=== PATIENT | female | born 1970 | race Caucasian/White ===

== ENCOUNTER 2018-05-02 14:58 | Emergency (ER) | payer OTHER ==
[2018-05-02 15:55] VITALS: BP 130/76
--- NOTE | 2018-05-02 15:55 | EDM.PDOC ---
ED HPI GENERAL MEDICAL PROBLEM - General Chief Complaint: ENT Problem Stated Complaint: EAR ACHE COUGH CONGESTION Time Seen by Provider: 05/02/18 15:49 Source of Information: Reports: Patient History Limitations: Reports: No Limitations - History of Present Illness INITIAL COMMENTS - FREE TEXT/NARRATIVE: History of present illness: []Patient has had 2 weeks of cough, sore throat, congestion, ear pain and body aches. 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 Symptoms have been persistent and worsening not improving. Review of systems: As per history of present illness and below otherwise all systems reviewed and negative. Past medical history: As per history of present illness and as reviewed below otherwise noncontributory. Surgical history: As per history of present illness and as reviewed below otherwise noncontributory. Social history: No reported history of drug or alcohol abuse. Family history: As per history of present illness and as reviewed below otherwise noncontributory. Physical exam: General: Well developed, well nourished in NAD HEENT: Atraumatic, normocephalic, pupils reactive, negative for conjunctival pallor or scleral icterus, mucous membranes moist, throat clear, neck supple, nontender, trachea midline. Lungs: Clear to auscultation, breath sounds equal bilaterally, chest nontender. Heart: S1S2, regular, negative for clicks, rubs, or JVD. Abdomen: NABS, Soft, nondistended, nontender. Negative for masses or hepatosplenomegaly. Negative for costovertebral tenderness. Pelvis: Stable nontender. Genitourinary: Deferred. Rectal: Deferred. Extremities: Atraumatic, negative for cords or calf pain. Neurovascular unremarkable. Neuro: Awake, alert, oriented. Cranial nerves II through XII unremarkable. Cerebellum unremarkable. Motor and sensory unremarkable throughout. Exam nonfocal. Skin:warm and dry Diagnostics: Strep and influenza negative Therapeutics: None ED Course: Unremarkable Impression: Respiratory infection Prescriptions: Amoxicillin Plan: Follow-up with primary care. Definitive disposition and diagnosis as appropriate pending reevaluation and review of above. Chest Pain Score (Numeric/FACES): 3 - Related Data Allergies Allergy/AdvReac Type Severity Reaction Status Date / Time No Known Allergies Allergy Verified 05/02/18 15:55 Home Meds: Home Meds Amoxicillin 875 mg PO BID 10 Days #20 tab 05/02/18 [Rx] FLUoxetine HCl [Prozac] 60 mg PO DAILY 05/02/18 [History] Omeprazole 1 tab DAILY 05/02/18 [History] Rosuvastatin [Crestor] 10 mg PO DAILY 05/02/18 [History] Past Medical History Cardiovascular History: Reports: High Cholesterol, Hypertension Gastrointestinal History: Reports: Other (See Below) Other Gastrointestinal History: ulcers Genitourinary History: Reports: Renal Calculus 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 ED EXAM, ENT - Physical Exam Exam: See Below (See history of present illness) Course - Vital Signs Last Recorded V/S: Last Vital Signs Temp 97.8 F 05/02/18 15:51 Pulse 84 05/02/18 15:51 Resp 18 05/02/18 15:51 BP 130/76 05/02/18 15:51 Pulse Ox 97 05/02/18 15:51 - Orders/Labs/Meds Orders: Active Orders 24 hr Category Date Time Status CULTURE STREP A CONFIRMATION [] Stat Lab 05/02/18 16:05 Results STREP SCRN A RAPID W CULT CONF [] Stat Lab 05/02/18 16:05 Results Departure - Departure Time of Disposition: 17:00 Disposition: Home, Self-Care 01 Condition: Good Clinical Impression: Upper respiratory infection Qualifiers: URI type: unspecified URI Qualified Code(s): J06.9 - Acute upper respiratory infection, unspecified - Discharge Information *PRESCRIPTION DRUG MONITORING PROGRAM REVIEWED*: No *COPY OF PRESCRIPTION DRUG MONITORING REPORT IN PATIENT JEREMY: No Referrals: Dl You MD [Primary Care Provider] - Forms: ED Department Discharge Additional Instructions: The following information is given to patients seen in the emergency department who are being discharged to home. This information is to outline your options for follow-up care. We provide all patients seen in our emergency department with a follow-up referral. The need for follow-up, as well as the timing and circumstances, are variable depending upon the specifics of your emergency department visit. If you don't have a primary care physician on staff, we will provide you with a referral. We always advise you to contact your personal physician following an emergency department visit to inform them of the circumstance of the visit and for follow-up with them and/or the need for any referrals to a consulting specialist. The emergency department will also refer you to a specialist when appropriate. This referral assures that you have the opportunity for follow-up care with a specialist. All of these measure are taken in an effort to provide you with optimal care, which includes your follow-up. Under all circumstances we always encourage you to contact your private physician who remains a resource for coordinating your care. When calling for follow-up care, please make the office aware that this follow-up is from your recent emergency room visit. If for any reason you are refused follow-up, please contact the [facility] Emergency Department at and asked to speak to the emergency department charge nurse. Amoxicillin as directed return symptoms worsen otherwise follow-up with your primary care. [facility] [address] [place] [id number] - My Orders Last 24 Hours: My Active Orders 05/02/18 16:05 CULTURE STREP A CONFIRMATION [RM] Stat STREP SCRN A RAPID W CULT CONF [RM] Stat - Assessment/Plan Last 24 Hours: My Active Orders 05/02/18 16:05 CULTURE STREP A CONFIRMATION [RM] Stat STREP SCRN A RAPID W CULT CONF [RM] Stat
== END 2018-05-02 17:16 | disposition home or self-care (01) ==
LOC: MW.ED 14:58
DX: J06.9 Acute upper respiratory infection, unspecified (principal); E78.00 Pure hypercholesterolemia, unspecified; F17.210 Nicotine dependence, cigarettes, uncomplicated; I10 Essential (primary) hypertension; F41.9 Anxiety disorder, unspecified; F32.9 Major depressive disorder, single episode, unspecified; Z79.899 Other long term (current) drug therapy
CPT/HCPCS: 87081; 87804; 87880-QW; 99283

== ENCOUNTER 2018-12-27 23:53 | Observation (INO) | payer OTHER ==
[2018-12-28] MEDS ORDERED: Sodium Chloride 0.9% 1,000 ML IV ONE (00:28)
[2018-12-28] MEDS ORDERED: Sodium Chloride 0.9% 10 ML Syringe FLUSH PRN (00:28)
[2018-12-28] MEDS ORDERED: Sodium Chloride 0.9% 2.5 ML Syringe FLUSH PRN (00:28)
--- NOTE | 2018-12-28 00:33 | EDM.PDOC ---
ED HPI GENERAL MEDICAL PROBLEM - General Chief Complaint: General Stated Complaint: FEVER Time Seen by Provider: 12/28/18 00:09 - History of Present Illness INITIAL COMMENTS - FREE TEXT/NARRATIVE: HISTORY AND PHYSICAL: History of present illness: The patient is a 48-year-old female who presents after undergoing rotator cuff surgery and bony spur removal from her left shoulder yesterday morning, presently 36 hours ago, at [facility] with Dr. Chacon and presents with a temperature of 100.5 evening at 11 PM, approximately one and a half hours ago. The patient has been taking her pain medication regularly with her last doses around 9 PM has been adding Motrin with her last dose at 4 PM. She said that she noticed that she felt hot and took her temperature and called her provider and was told that she needed to be evaluated for the fever. The patient says that she has had some shortness of breath which started gradually and seems to be worsening since after the fever and a slight dry cough and with some of the coughing she has had some mucus which is pink tinged no vomiting. She says that she does have a history of an ulcer but is not vomiting or having any epigastric or abdominal pain. She has only had one bottle of water and one bottle of Gatorade all day and says she is not good at drinking water. She does not have a sore throat runny nose or any urinary symptoms. She has no pain at her right hand where her IV was placed yesterday. Due to her significant other who is at bedside he has been keeping an eye on her dressings which he changed today and there is been no drainage or concerns regarding those. Review of systems: As per history of present illness and below otherwise all systems reviewed and negative. Past medical history: As per history of present illness and as reviewed below otherwise noncontributory. Surgical history: As per history of present illness and as reviewed below otherwise noncontributory. Social history: No reported history of drug or alcohol abuse. Family history: As per history of present illness and as reviewed below otherwise noncontributory. Physical exam: General: Well-developed well-nourished mildly overweight female who is nontoxic and vital signs are noted by me. She is currently afebrile in the ED HEENT: Atraumatic, normocephalic, pupils reactive, negative for conjunctival pallor or scleral icterus, mucous membranes tacky throat clear, neck supple, nontender, trachea midline. Lungs: Clear to auscultation with diminished breath sounds in the bases bilaterally but no wheezing stridor or work of breathing,, breath sounds equal bilaterally, chest nontender. Heart: S1S2, regular rhythm slightly tachycardic rate on my evaluation no overt murmurs Abdomen: Soft, nondistended, nontender. Negative for masses or hepatosplenomegaly. Negative for costovertebral tenderness. Pelvis: Stable nontender. Genitourinary: Deferred. Rectal: Deferred. Extremities: Atraumatic, negative for cords or calf pain. Neurovascular unremarkable. At the dorsal aspect of her right hand where the IV was placed yesterday there is no ecchymosis erythema or soft tissue swelling. The dressing that the placed at the left shoulder was taken down and the incisions are clean and dry without any drainage and there is some ill-defined erythema noted and some warmth there but no gross tenderness fluctuance or crepitance. Neuro: Awake, alert, oriented. Cranial nerves II through XII unremarkable. Cerebellum unremarkable. Motor and sensory unremarkable throughout. Exam nonfocal. Diagnostics: Chest x-ray CBC CMP lactate UA with reflex blood cultures 2, EKG BNP Therapeutics: IV, IV fluids, Dilaudid for pain, Zofran Rocephin incentive spirometer She remains afebrile and heart rate has normalized with IV fluids 0225: This was discussed with the orthopedic surgeon at [facility] in [place] , Dr Hastings; he feels this is not an orthopedic issue and that if the patient could be admitted here for care of the pneumonia and fever and observed that would be more convenient for the patient. He is aware that I will discuss this with my hospitalist and if the situation changes she would need to be transferred as this is a postoperative complication. He states understanding and is Appropriate and understandable 0234: Case was discussed with our hospitalist Dr. Silva who excepts the patient for observation with the caveat that if things worsen change or evolve that she would be transferred. I discussed all testing results with the patient and family at bedside and they are aware that we can observe her here and that if the situation changes or develops she would need to be transferred. They state understanding Impression: Postop fever, status post left shoulder surgery; bilateral upper pneumonia Definitive disposition and diagnosis as appropriate pending reevaluation and review of above. 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 - Related Data Allergies Allergy/AdvReac Type Severity Reaction Status Date / Time No Known Allergies Allergy Verified 05/02/18 15:55 Home Meds: Home Meds FLUoxetine HCl [Prozac] 60 mg PO DAILY 05/02/18 [History] Omeprazole 20 mg PO DAILY 05/02/18 [History] Rosuvastatin [Crestor] 10 mg PO DAILY 05/02/18 [History] Gabapentin [Neurontin] 0 mg PO DAILY 12/28/18 [History] Hydrocodone/Acetaminophen [[place] 10-325 Tablet] 0 mg PO ASDIRECTED PRN 12/28/18 [History] cloNIDine [Catapres] 0.1 mg PO DAILY 12/28/18 [History] oxyCODONE 0 mg PO ASDIRECTED PRN 12/28/18 [History] Past Medical History Cardiovascular History: Reports: High Cholesterol, Hypertension Gastrointestinal History: Reports: Other (See Below) Other Gastrointestinal History: ulcers Genitourinary History: Reports: Renal Calculus 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: Musculoskeletal History: Reports: Fibromyalgia Psychiatric History: Reports: Anxiety, Depression Endocrine/Metabolic History: Reports: Obesity/BMI 30+ - Infectious Disease History Infectious Disease History: Reports: Chicken Pox - Past Surgical History Female Surgical History: Reports: Hysterectomy Musculoskeletal Surgical History: Reports: Shoulder Surgery Social & Family History - Family History Family Medical History: Noncontributory Cardiac: Reports: High Cholesterol, Hypertension, [place] Neurological: Reports: CVA Endocrine/Metabolic: Reports: Diabetes, type II - Tobacco Use Smoking Status *Q: Current Every Day Smoker Years of Tobacco use: 30 Packs/Tins Daily: 1 - Recreational Drug Use Recreational Drug Use: No ED ROS GENERAL - Review of Systems Review Of Systems: ROS reveals no pertinent complaints other than HPI. ED EXAM, GENERAL - Physical Exam Exam: See Below (See dictation) Course - Vital Signs Last Recorded V/S: Last Vital Signs Temp 37.8 C 12/28/18 02:11 Pulse 99 12/28/18 02:32 Resp 16 12/28/18 02:32 BP 106/57 L 12/28/18 02:32 Pulse Ox 96 12/28/18 02:32 - Orders/Labs/Meds Orders: Active Orders 24 hr Category Date Time Status Patient Status [ADT] Stat ADT 12/28/18 02:40 Ordered EKG Documentation Completion [RC] STAT Care 12/28/18 01:00 Active Oxygen Therapy, ED [] ASDIRECTED Care 12/28/18 01:06 Active Pulse Oximetry [RC] ASDIRECTED Care 12/28/18 01:06 Active CULTURE BLOOD [BC] Stat Lab 12/28/18 00:39 Received CULTURE BLOOD [BC] Stat Lab 12/28/18 01:30 Received Sodium Chloride 0.9% [Normal Saline] 1,000 ml Med 12/28/18 02:30 Active IV ASDIRECTED Sodium Chloride 0.9% [Saline Flush] Med 12/28/18 00:28 Active 10 ml FLUSH ASDIRECTED PRN Sodium Chloride 0.9% [Saline Flush] Med 12/28/18 00:28 Active 2.5 ml FLUSH ASDIRECTED PRN cefTRIAXone [Rocephin in Dextrose,Iso-Osm 2 GM/50 ML] 2 Med 12/28/18 02:19 Active gm Premix Bag 1 bag IV ONETIME Blood Culture x2 Reflex Set [OM.PC] Stat Oth 12/28/18 00:28 Ordered Saline Lock Insert [OM.PC] Stat Oth 12/28/18 00:27 Ordered Medication Orders Ceftriaxone Sodium/Dextrose 2 (gm/ Premix) 50 mls @ 100 mls/hr IV ONETIME ONE Stop: 12/28/18 02:48 Last Admin: 12/28/18 02:27 Dose: 100 mls/hr Sodium Chloride (Normal Saline) 1,000 mls @ 125 mls/hr IV ASDIRECTED [facility] Last Admin: 12/28/18 02:27 Dose: 125 mls/hr Sodium Chloride (Saline Flush) 10 ml FLUSH ASDIRECTED PRN PRN Reason: Keep Vein Open Sodium Chloride (Saline Flush) 2.5 ml FLUSH ASDIRECTED PRN PRN Reason: Keep Vein Open Labs: Laboratory Tests 12/28/18 12/28/18 12/28/18 Range/Units 00:34 00:39 00:39 WBC 17.15 H (4.0-11.0) K/uL RBC 4.43 (4.30-5.90) M/uL Hgb 13.4 (12.0-16.0) g/dL Hct 40.5 (36.0-46.0) % MCV 91.4 (80.0-98.0) fL MCH 30.2 (27.0-32.0) pg MCHC 33.1 (31.0-37.0) g/dL RDW Std Deviation 43.3 (28.0-62.0) fl RDW Coeff of [place]ry 13 (11.0-15.0) % Plt Count 275 (150-400) K/uL MPV 9.80 (7.40-12.00) fL Neut % (Auto) 77.5 (48.0-80.0) % Lymph % (Auto) 13.3 L (16.0-40.0) % [place] % (Auto) 7.4 (0.0-15.0) % Eos % (Auto) 1.6 (0.0-7.0) % Baso % (Auto) 0.2 (0.0-1.5) % Neut # (Auto) 13.3 H (1.4-5.7) K/uL Lymph # (Auto) 2.3 (0.6-2.4) K/uL [place] # (Auto) 1.3 H (0.0-0.8) K/uL Eos # (Auto) 0.3 (0.0-0.7) K/uL Baso # (Auto) 0.0 (0.0-0.1) K/uL Lactate 1.4 (0.20-2.00) mmol/L Sodium (136-145) mmol/L Potassium (3.5-5.1) mmol/L Chloride (98-107) mmol/L Carbon Dioxide (21.0-32.0) mmol/L BUN (7.0-18.0) mg/dL Creatinine (0.6-1.0) mg/dL Est Cr Clr Drug Dosing mL/min Estimated GFR (MDRD) ml/min Glucose (74-106) mg/dL Calcium (8.5-10.1) mg/dL Total Bilirubin (0.2-1.0) mg/dL AST (15-37) IU/L ALT (14-63) IU/L Alkaline Phosphatase (46-116) U/L B-Natriuretic Peptide (<100) PG/ML Total Protein (6.4-8.2) g/dL Albumin (3.4-5.0) g/dL Globulin (2.6-4.0) g/dL Albumin/Globulin Ratio (0.9-1.6) Urine Color YELLOW Urine Appearance CLEAR Urine pH 6.0 (5.0-8.0) Ur Specific [place] >= 1.030 (1.001-1.035) Urine Protein NEGATIVE (NEGATIVE) mg/dL Urine Glucose (UA) 250 H (NEGATIVE) mg/dL Urine Ketones NEGATIVE (NEGATIVE) mg/dL Urine Occult Blood SMALL H (NEGATIVE) Urine Nitrite NEGATIVE (NEGATIVE) Urine Bilirubin NEGATIVE (NEGATIVE) Urine Urobilinogen 0.2 (<2.0) EU/dL Ur Leukocyte Esterase NEGATIVE (NEGATIVE) Urine RBC 1-3 (0-2/HPF) Urine WBC 0-1 (0-5/HPF) Ur Epithelial Cells MODERATE (NONE-FEW) Urine Bacteria RARE (NEGATIVE) Urine Mucus LIGHT (NONE-MOD) 12/28/18 12/28/18 Range/Units 00:39 00:39 WBC (4.0-11.0) K/uL RBC (4.30-5.90) M/uL Hgb (12.0-16.0) g/dL Hct (36.0-46.0) % MCV (80.0-98.0) fL MCH (27.0-32.0) pg MCHC (31.0-37.0) g/dL RDW Std Deviation (28.0-62.0) fl RDW Coeff of [place] (11.0-15.0) % Plt Count (150-400) K/uL MPV (7.40-12.00) fL Neut % (Auto) (48.0-80.0) % Lymph % (Auto) (16.0-40.0) % [place] % (Auto) (0.0-15.0) % Eos % (Auto) (0.0-7.0) % Baso % (Auto) (0.0-1.5) % Neut # (Auto) (1.4-5.7) K/uL Lymph # (Auto) (0.6-2.4) K/uL [place] # (Auto) (0.0-0.8) K/uL Eos # (Auto) (0.0-0.7) K/uL Baso # (Auto) (0.0-0.1) K/uL Lactate (0.20-2.00) mmol/L Sodium 142 (136-145) mmol/L Potassium 3.5 (3.5-5.1) mmol/L Chloride 106 (98-107) mmol/L Carbon Dioxide 25.6 (21.0-32.0) mmol/L BUN 12 (7.0-18.0) mg/dL Creatinine 0.8 (0.6-1.0) mg/dL Est Cr Clr Drug Dosing 62.44 mL/min Estimated GFR (MDRD) > 60.0 ml/min Glucose 156 H (74-106) mg/dL Calcium 8.6 (8.5-10.1) mg/dL Total Bilirubin 0.5 (0.2-1.0) mg/dL AST 23 (15-37) IU/L ALT 29 (14-63) IU/L Alkaline Phosphatase 105 (46-116) U/L B-Natriuretic Peptide 88 (<100) PG/ML Total Protein 7.3 (6.4-8.2) g/dL Albumin 3.5 (3.4-5.0) g/dL Globulin 3.8 (2.6-4.0) g/dL Albumin/Globulin Ratio 0.9 (0.9-1.6) Urine Color Urine Appearance Urine pH (5.0-8.0) Ur Specific [place] (1.001-1.035) Urine Protein (NEGATIVE) mg/dL Urine Glucose (UA) (NEGATIVE) mg/dL Urine Ketones (NEGATIVE) mg/dL Urine Occult Blood (NEGATIVE) Urine Nitrite (NEGATIVE) Urine Bilirubin (NEGATIVE) Urine Urobilinogen (<2.0) EU/dL Ur Leukocyte Esterase (NEGATIVE) Urine RBC (0-2/HPF) Urine WBC (0-5/HPF) Ur Epithelial Cells (NONE-FEW) Urine Bacteria (NEGATIVE) Urine Mucus (NONE-MOD) Meds: Medications Generic Name Dose Route Start Last Admin Trade Name Freq PRN Reason Stop Dose Admin Ceftriaxone Sodium/Dextrose 2 50 mls @ 100 mls/hr 12/28/18 02:19 12/28/18 02: 27 gm/ Premix IV 12/28/18 02:48 100 mls/hr ONETIME ONE Administration Sodium Chloride 1,000 mls @ 125 mls/hr 12/28/18 02:30 12/28/18 02:27 Normal Saline IV 125 mls/hr ASDIRECTED MARLON Administration Sodium Chloride 10 ml 12/28/18 00:28 Saline Flush FLUSH ASDIRECTED PRN Keep Vein Open Sodium Chloride 2.5 ml 12/28/18 00:28 Saline Flush FLUSH ASDIRECTED PRN Keep Vein Open Discontinued Medications Generic Name Dose Route Start Last Admin Trade Name Freq PRN Reason Stop Dose Admin Hydromorphone HCl 1 mg 12/28/18 00:52 12/28/18 01:02 Dilaudid IVPUSH 12/28/18 00:53 1 mg ONETIME ONE Administration Sodium Chloride 1,000 mls @ 999 mls/hr 12/28/18 00:28 12/28/18 00:49 Normal Saline IV 12/28/18 01:28 999 mls/hr STAT ONE Administration Ondansetron HCl 4 mg 12/28/18 01:06 12/28/18 01:08 Zofran IVPUSH 12/28/18 01:07 4 mg ONETIME ONE Administration Ondansetron HCl Confirm 12/28/18 01:06 12/28/18 01:08 Zofran Administered 12/28/18 01:07 Not Given Dose 4 mg .ROUTE .STK-MED ONE Departure - Departure Time of Disposition: 02:44 Disposition: Refer to Observation Condition: Fair Clinical Impression: Postoperative fever Pneumonia Qualifiers: Pneumonia type: due to unspecified organism Laterality: bilateral Lung location : upper lobe of lung Qualified Code(s): J18.1 - Lobar pneumonia, unspecified organism - Discharge Information Referrals: PCP,None [Primary Care Provider] - Forms: ED Department Discharge - My Orders Last 24 Hours: My Active Orders 12/28/18 00:27 Saline Lock Insert [OM.PC] Stat 12/28/18 00:28 Sodium Chloride 0.9% [Saline Flush] 10 ml FLUSH ASDIRECTED PRN Sodium Chloride 0.9% [Saline Flush] 2.5 ml FLUSH ASDIRECTED PRN Blood Culture x2 Reflex Set [OM.PC] Stat 12/28/18 00:39 CULTURE BLOOD [BC] Stat 12/28/18 01:00 EKG Documentation Completion [RC] STAT 12/28/18 01:06 Oxygen Therapy, ED [RC] ASDIRECTED Pulse Oximetry [RC] ASDIRECTED 12/28/18 01:30 CULTURE BLOOD [BC] Stat 12/28/18 02:19 cefTRIAXone [Rocephin in Dextrose,Iso-Osm 2 GM/50 ML] 2 gm Premix Bag 1 bag IV ONETIME 12/28/18 02:30 Sodium Chloride 0.9% [Normal Saline] 1,000 ml IV ASDIRECTED 12/28/18 02:40 Patient Status [ADT] Stat - Assessment/Plan Last 24 Hours: My Active Orders 12/28/18 00:27 Saline Lock Insert [OM.PC] Stat 12/28/18 00:28 Sodium Chloride 0.9% [Saline Flush] 10 ml FLUSH ASDIRECTED PRN Sodium Chloride 0.9% [Saline Flush] 2.5 ml FLUSH ASDIRECTED PRN Blood Culture x2 Reflex Set [OM.PC] Stat 12/28/18 00:39 CULTURE BLOOD [BC] Stat 12/28/18 01:00 EKG Documentation Completion [RC] STAT 12/28/18 01:06 Oxygen Therapy, ED [RC] ASDIRECTED Pulse Oximetry [RC] ASDIRECTED 12/28/18 01:30 CULTURE BLOOD [BC] Stat 12/28/18 02:19 cefTRIAXone [Rocephin in Dextrose,Iso-Osm 2 GM/50 ML] 2 gm Premix Bag 1 bag IV ONETIME 12/28/18 02:30 Sodium Chloride 0.9% [Normal Saline] 1,000 ml IV ASDIRECTED 12/28/18 02:40 Patient Status [ADT] Stat
[2018-12-28] MEDS ORDERED: HYDROmorphone 1 MG/ML Syringe IVPUSH ONE (00:52)
[2018-12-28] MEDS ORDERED: Ondansetron 4 MG/2 ML SDV ONE (01:06)
[2018-12-28] MEDS ORDERED: Ondansetron 4 MG/2 ML SDV IVPUSH ONE (01:06)
[2018-12-28 01:09] LABS: BLOOD UREA NITROGEN,BUN 12 mg/dL (7.0-18.0); CARBON DIOXIDE,CO2 25.6 mmol/L (21.0-32.0); CHLORIDE,CL 106 mmol/L (98-107); GLUCOSE RANDOM 156 mg/dL (74-106); POTASSIUM,K 3.5 mmol/L (3.5-5.1); SODIUM,NA 142 mmol/L (136-145)
--- NOTE | 2018-12-28 01:28 | CR ---
INDICATION: Pain. Fever. Shortness of breath. Left shoulder surgery 1 day ago. TECHNIQUE: AP portable chest. FINDINGS: Patchy infiltrates within the left upper lobe. More nodular infiltrate in the right upper. These could be infectious in nature. Asymmetric edema not is not entirely excluded. Overall heart size is at the upper limit of normal. IMPRESSION: Patchy infiltrates bilaterally left greater than right. Clinical correlation and radiographic follow up recommended. Dictated by Jose Wiley MD @ Dec 28 2018 1:26AM Signed by Dr. Jose Wiley @ Dec 28 2018 1:27AM
[2018-12-28] MEDS ORDERED: cefTRIAXone 2 GM in Premix Bag 1 BAG IV ONE (02:19)
[2018-12-28] MEDS: Sodium Chloride 0.9% 1,000 ML IV SCH ×2 (02:27→09:07)
[2018-12-28] MEDS ORDERED: Sodium Chloride 0.9% 1,000 ML IV SCH (03:30)
[2018-12-28] MEDS: oxyCODONE 5 MG Tab PO PRN ×4 (05:30→20:42)
--- NOTE | 2018-12-28 07:46 | PCM.HP.2 ---
H&P History of Present Illness - General Date of Service: 12/28/18 Admit Problem/Dx: Admission Diagnosis/Problem Admission Diagnosis/Problem Pneumonia Source of Information: Patient History Limitations: Reports: No Limitations - History of Present Illness Initial Comments - Free Text/Narative: The patient is a 48-year-old lady who presented to the emergency department on December 28, 2018 with a complaint of a fever. The patient said while at home she had a fever of 100.5F. The patient also had recent rotator cuff surgery and bone spur removal from her left shoulder. Patient was discharged from hospitalization yesterday. The patient had been complaining of pain and fever and she contacted her surgeon and they had recommended that she be evaluated in the emergency department. The patient also reportedly had been coughing up pinkish sputum. She also had been complaining of shortness of breath and not being able to take a deep breath. She has no other complaints at the present time. The patient also had said that she does not drink very much fluid. No sore throat. The patient also had denied any nausea or vomiting. Onset of Symptoms: Reports: Sudden Duration of Symptoms: Reports: Day(s): Quality: Reports: Ache, Stabbing, Other Improves with: Reports: Medication Worsens with: Reports: Movement Context: Reports: Other (Postop day #3 surgery left shoulder) left shoulder Pain Score (Numeric/FACES): 8 - Related Data Allergies/Adverse Reactions: Allergies Allergy/AdvReac Type Severity Reaction Status Date / Time No Known Allergies Allergy Verified 12/28/18 02:54 Home Medications: Home Meds FLUoxetine HCl [Prozac] 60 mg PO DAILY 05/02/18 [History] Omeprazole 20 mg PO DAILY 05/02/18 [History] Rosuvastatin [Crestor] 10 mg PO DAILY 05/02/18 [History] Albuterol Sulfate [Proventil Hfa] 6.7 gm IH Q4HR PRN 12/28/18 [History] Amylase/Protease/Papain/Papaya [Papaya Enzyme Chewable Tablet] 1 each PO PRN 09/10 [History] Docusate Sodium [Stool Softener] 100 mg PO DAILY 12/28/18 [History] Gabapentin [Neurontin] 300 mg PO BEDTIME 12/28/18 [History] Jasmin Root [Jasmin] 250 mg PO DAILY 12/28/18 [History] Hydrocodone/Acetaminophen [[place] 10-325 Tablet] 0 mg PO ASDIRECTED PRN 12/28/18 [History] Niacin 100 mg PO DAILY 12/28/18 [History] Vitamin B Complex 1 each PO DAILY 12/28/18 [History] cloNIDine [Catapres] 0.1 mg PO BEDTIME 12/28/18 [History] oxyCODONE 0 mg PO ASDIRECTED PRN 12/28/18 [History] Past Medical History HEENT History: Reports: Hard of Hearing Cardiovascular History: Reports: High Cholesterol, Hypertension, Other (See Below) Other Cardiovascular History: Has some blockage. Not enough for stents. 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: Musculoskeletal History: Reports: Fibromyalgia Neurological History: Reports: None Psychiatric History: Reports: Anxiety, Depression Endocrine/Metabolic History: Reports: Obesity/BMI 30+ Hematologic History: Reports: None - Infectious Disease History Infectious Disease History: Reports: Chicken Pox - Past Surgical History Female Surgical History: Reports: Hysterectomy Musculoskeletal Surgical History: Reports: Shoulder Surgery Social & Family History - Family History Family Medical History: Noncontributory Cardiac: Reports: High Cholesterol, Hypertension, NM Neurological: Reports: CVA Endocrine/Metabolic: Reports: Diabetes, type II - Tobacco Use Smoking Status *Q: Current Every Day Smoker Years of Tobacco use: 33 Packs/Tins Daily: 1 - Caffeine Use Caffeine Use: Reports: Coffee, Soda - Recreational Drug Use Recreational Drug Use: No - Living Situation & Occupation Living situation: Reports: , with Spouse Occupation: Unemployed H&P Review of Systems - Review of Systems: Review Of Systems: See Below General: Reports: Fever, Weakness HEENT: Reports: No Symptoms Pulmonary: Reports: Shortness of Breath, Cough, Sputum Cardiovascular: Reports: No Symptoms Gastrointestinal: Reports: No Symptoms Genitourinary: Reports: No Symptoms Musculoskeletal: Reports: Shoulder Pain (Postoperative day 3) Skin: Reports: No Symptoms Psychiatric: Reports: No Symptoms Neurological: Reports: No Symptoms Hematologic/Lymphatic: Reports: No Symptoms Immunologic: Reports: No Symptoms Exam - Exam Exam: See Below - Vital Signs Vital Signs: Last Vital Signs Temp 36.8 C 12/28/18 03:00 Pulse 96 12/28/18 03:00 Resp 17 12/28/18 03:00 BP 104/62 12/28/18 03:00 Pulse Ox 91 L 12/28/18 03:00 Weight: 82.372 kg - Exam Quality Assessment: No: Supplemental Oxygen General: Alert, Oriented, Cooperative, Mild Distress HEENT: Conjunctiva Clear, EACs Clear, EOMI, Pupils Equal, PERRLA. No: Mucosa Moist & [place] (Dry) Neck: Supple, Trachea Midline Lungs: Clear to Auscultation, Normal Respiratory Effort Cardiovascular: Regular Rate, Regular Rhythm GI/Abdominal Exam: Normal Bowel Sounds, Soft, No Distention. No: Guarding, Rigid, Rebound Extremities: No: Normal Inspection, Normal Range of Motion (Decreased range of motion left shoulder, in sling and swath) Skin: Warm, Dry, Incision (Clean and dry) Neurological: Cranial Nerves Intact Neuro Extensive - Mental Status: Alert, Oriented x3 Psychiatric: Alert, Normal Affect, Normal Mood - Patient Data Lab Results Last 24 hrs: Laboratory Results - last 24 hr 12/28/18 12/28/18 12/28/18 Range/Units 00:34 00:39 00:39 WBC 17.15 H (4.0-11.0) K/uL RBC 4.43 (4.30-5.90) M/uL Hgb 13.4 (12.0-16.0) g/dL Hct 40.5 (36.0-46.0) % MCV 91.4 (80.0-98.0) fL MCH 30.2 (27.0-32.0) pg MCHC 33.1 (31.0-37.0) g/dL RDW Std Deviation 43.3 (28.0-62.0) fl RDW Coeff of Adry 13 (11.0-15.0) % Plt Count 275 (150-400) K/uL MPV 9.80 (7.40-12.00) fL Neut % (Auto) 77.5 (48.0-80.0) % Lymph % (Auto) 13.3 L (16.0-40.0) % [place] % (Auto) 7.4 (0.0-15.0) % Eos % (Auto) 1.6 (0.0-7.0) % Baso % (Auto) 0.2 (0.0-1.5) % Neut # (Auto) 13.3 H (1.4-5.7) K/uL Lymph # (Auto) 2.3 (0.6-2.4) K/uL [place] # (Auto) 1.3 H (0.0-0.8) K/uL Eos # (Auto) 0.3 (0.0-0.7) K/uL Baso # (Auto) 0.0 (0.0-0.1) K/uL Lactate 1.4 (0.20-2.00) mmol/L Sodium (136-145) mmol/L Potassium (3.5-5.1) mmol/L Chloride (98-107) mmol/L Carbon Dioxide (21.0-32.0) mmol/L BUN (7.0-18.0) mg/dL Creatinine (0.6-1.0) mg/dL Est Cr Clr Drug Dosing mL/min Estimated GFR (MDRD) ml/min Glucose (74-106) mg/dL Calcium (8.5-10.1) mg/dL Total Bilirubin (0.2-1.0) mg/dL AST (15-37) IU/L ALT (14-63) IU/L Alkaline Phosphatase (46-116) U/L B-Natriuretic Peptide (<100) PG/ML Total Protein (6.4-8.2) g/dL Albumin (3.4-5.0) g/dL Globulin (2.6-4.0) g/dL Albumin/Globulin Ratio (0.9-1.6) Urine Color YELLOW Urine Appearance CLEAR Urine pH 6.0 (5.0-8.0) Ur Specific [place] >= 1.030 (1.001-1.035) Urine Protein NEGATIVE (NEGATIVE) mg/dL Urine Glucose (UA) 250 H (NEGATIVE) mg/dL Urine Ketones NEGATIVE (NEGATIVE) mg/dL Urine Occult Blood SMALL H (NEGATIVE) Urine Nitrite NEGATIVE (NEGATIVE) Urine Bilirubin NEGATIVE (NEGATIVE) Urine Urobilinogen 0.2 (<2.0) EU/dL Ur Leukocyte Esterase NEGATIVE (NEGATIVE) Urine RBC 1-3 (0-2/HPF) Urine WBC 0-1 (0-5/HPF) Ur Epithelial Cells MODERATE (NONE-FEW) Urine Bacteria RARE (NEGATIVE) Urine Mucus LIGHT (NONE-MOD) 12/28/18 12/28/18 Range/Units 00:39 00:39 WBC (4.0-11.0) K/uL RBC (4.30-5.90) M/uL Hgb (12.0-16.0) g/dL Hct (36.0-46.0) % MCV (80.0-98.0) fL MCH (27.0-32.0) pg MCHC (31.0-37.0) g/dL RDW Std Deviation (28.0-62.0) fl RDW Coeff of [place] (11.0-15.0) % Plt Count (150-400) K/uL MPV (7.40-12.00) fL Neut % (Auto) (48.0-80.0) % Lymph % (Auto) (16.0-40.0) % [place] % (Auto) (0.0-15.0) % Eos % (Auto) (0.0-7.0) % Baso % (Auto) (0.0-1.5) % Neut # (Auto) (1.4-5.7) K/uL Lymph # (Auto) (0.6-2.4) K/uL [place] # (Auto) (0.0-0.8) K/uL Eos # (Auto) (0.0-0.7) K/uL Baso # (Auto) (0.0-0.1) K/uL Lactate (0.20-2.00) mmol/L Sodium 142 (136-145) mmol/L Potassium 3.5 (3.5-5.1) mmol/L Chloride 106 (98-107) mmol/L Carbon Dioxide 25.6 (21.0-32.0) mmol/L BUN 12 (7.0-18.0) mg/dL Creatinine 0.8 (0.6-1.0) mg/dL Est Cr Clr Drug Dosing 62.44 mL/min Estimated GFR (MDRD) > 60.0 ml/min Glucose 156 H (74-106) mg/dL Calcium 8.6 (8.5-10.1) mg/dL Total Bilirubin 0.5 (0.2-1.0) mg/dL AST 23 (15-37) IU/L ALT 29 (14-63) IU/L Alkaline Phosphatase 105 (46-116) U/L B-Natriuretic Peptide 88 (<100) PG/ML Total Protein 7.3 (6.4-8.2) g/dL Albumin 3.5 (3.4-5.0) g/dL Globulin 3.8 (2.6-4.0) g/dL Albumin/Globulin Ratio 0.9 (0.9-1.6) Urine Color Urine Appearance Urine pH (5.0-8.0) Ur Specific [place] (1.001-1.035) Urine Protein (NEGATIVE) mg/dL Urine Glucose (UA) (NEGATIVE) mg/dL Urine Ketones (NEGATIVE) mg/dL Urine Occult Blood (NEGATIVE) Urine Nitrite (NEGATIVE) Urine Bilirubin (NEGATIVE) Urine Urobilinogen (<2.0) EU/dL Ur Leukocyte Esterase (NEGATIVE) Urine RBC (0-2/HPF) Urine WBC (0-5/HPF) Ur Epithelial Cells (NONE-FEW) Urine Bacteria (NEGATIVE) Urine Mucus (NONE-MOD) Result Diagrams: 12/28/18 00:39 12/28/18 00:39 - Problem List (1) Acute respiratory failure SNOMED Code(s): 67884596 ICD Code: J96.00 - ACUTE RESPIRATORY FAILURE, UNSP W HYPOXIA OR HYPERCAPNIA Status: Acute Current Visit: Yes (2) Hypoxia SNOMED Code(s): 301603153 ICD Code: R09.02 - HYPOXEMIA Status: Acute Current Visit: Yes (3) Pneumonia SNOMED Code(s): 437844601 ICD Code: J18.9 - PNEUMONIA, UNSPECIFIED ORGANISM Status: Acute Current Visit: Yes Qualifiers: Pneumonia type: due to unspecified organism Laterality: bilateral Lung location: upper lobe of lung Qualified Code(s): J18.1 - Lobar pneumonia, unspecified organism (4) Postoperative fever SNOMED Code(s): 240650628 ICD Code: R50.82 - POSTPROCEDURAL FEVER Status: Acute Current Visit: Yes Problem List Initiated/Reviewed/Updated: Yes Orders Last 24hrs: Active Orders 24 hr Category Date Time Status Patient Status [ADT] Stat ADT 12/28/18 02:40 Active Pulse Oximetry [RC] ASDIRECTED Care 12/28/18 01:06 Active Regular Diet [DIET] Diet 12/28/18 Breakfast Active CULTURE BLOOD [BC] Stat Lab 12/28/18 00:39 Received CULTURE BLOOD [BC] Stat Lab 12/28/18 01:30 Received Sodium Chloride 0.9% [Normal Saline] 1,000 ml Med 12/28/18 02:30 Active IV ASDIRECTED Sodium Chloride 0.9% [Normal Saline] 1,000 ml Med 12/28/18 03:30 Active IV ASDIRECTED Sodium Chloride 0.9% [Saline Flush] Med 12/28/18 00:28 Active 10 ml FLUSH ASDIRECTED PRN Sodium Chloride 0.9% [Saline Flush] Med 12/28/18 00:28 Active 2.5 ml FLUSH ASDIRECTED PRN oxyCODONE Med 12/28/18 03:27 Active 5 mg PO Q4H PRN Blood Culture x2 Reflex Set [OM.PC] Stat Oth 12/28/18 00:28 Ordered Saline Lock Insert [OM.PC] Stat Oth 12/28/18 00:27 Ordered Medication Orders Sodium Chloride (Normal Saline) 1,000 mls @ 125 mls/hr IV ASDIRECTED [facility]LON Last Admin: 12/28/18 02:27 Dose: 125 mls/hr Sodium Chloride (Normal Saline) 1,000 mls @ 125 mls/hr IV ASDIRECTED [facility] Oxycodone HCl (Oxycodone) 5 mg PO Q4H PRN PRN Reason: Pain Last Admin: 12/28/18 05:30 Dose: 5 mg Sodium Chloride (Saline Flush) 10 ml FLUSH ASDIRECTED PRN PRN Reason: Keep Vein Open Sodium Chloride (Saline Flush) 2.5 ml FLUSH ASDIRECTED PRN PRN Reason: Keep Vein Open Assessment/Plan Comment:: The patient is an otherwise healthy 48-year-old lady who will be admitted secondary to pneumonia. I've also ordered a CT scan of her chest and help exclude pulmonary emboli. The patient because of her recent hospitalization will be treated as hospital-acquired pneumonia and Rocephin has been discontinued. The emergency room physician is also discussed the case with the orthopedic surgeon of record and is felt that the patient can be managed here. The patient will be started on Zosyn, vancomycin and clindamycin with pharmacy to dose. I've ordered repeat laboratory studies for the morning. She'll be kept on a regular diet as tolerated. I've also ordered that the patient be anticoagulated with the use of Lovenox. PT OT will evaluate the patient. She also has been encouraged to ambulate. I've also instructed the patient in the use of incentive spirometer as she has not been taking a very deep breath and I believe that this is also contributing to her hypoxia. The patient should be appropriate for discharge in 1-2 days. - Mortality Measure Prognosis:: Good
[2018-12-28] MEDS ORDERED: Albuterol/Ipratropium 3.0-0.5 MG/3 ML Neb Soln NEB PRN (08:18)
[2018-12-28] MEDS ORDERED: Ondansetron 4 MG Tab.DIS PO PRN (08:18)
[2018-12-28] MEDS ORDERED: Piperacillin/Tazobactam 4.5 GM in Sodium Chloride 0.9% 100 ML IV SCH ×2 (09:30→11:30)
[2018-12-28] MEDS: Docusate Sodium 100 MG Cap PO SCH (09:59)
[2018-12-28] MEDS: FLUoxetine 20 MG Cap PO SCH (09:59)
[2018-12-28] MEDS: Omeprazole 20 MG Cap.CR PO SCH (09:59)
[2018-12-28] MEDS: Rosuvastatin 10 MG Tab PO SCH (09:59)
[2018-12-28] MEDS: Enoxaparin 40 MG/0.4 ML Syringe SUBCUT SCH (10:01)
[2018-12-28] MEDS ORDERED: Iopamidol 755 MG/ML 200 ML Multipack Bottle IVPUSH STA (10:19)
[2018-12-28] MEDS: VANCOMYCIN/WATER FOR INJ (PEG) 1.5 GM in Premix Bag 1 BAG IV SCH ×2 (10:32→22:17)
[2018-12-28] MEDS: Nicotine 14 MG/24 Hr Patch TRDERM SCH (10:32)
[2018-12-28] MEDS ORDERED: Clindamycin Phosphate in D5W 300 MG in Premix Bag 1 BAG IV SCH ×2 (11:00)
--- NOTE | 2018-12-28 11:01 | CT ---
Indication: Shortness of breath. Technique: Multiple contiguous axial images were obtained from the thoracic inlet to the upper abdomen after the intravenous administration of 50 milliliters Isovue 370. Please note that all CT scans at this facility use dose modulation, iterative reconstruction, and/or weight-based dosing when appropriate to reduce radiation dose to as low as reasonably achievable. Comparison: None Findings: The aorta is normal in caliber. There is no evidence of aortic dissection. No pulmonary embolism is identified. No mediastinal, hilar, or axillary lymphadenopathy is identified. The visualized portions of the unenhanced liver and spleen are grossly normal. Degenerative changes of the spine are identified. No lytic or blastic lesions are identified. Bilateral dense ground-glass opacities are identified within both lungs, greatest in the left upper lobe. Small bilateral pleural effusions are identified, greater on the left than the right. No pneumothorax is identified. Impression: No evidence of pulmonary embolism. Bilateral dense ground-glass opacities, greatest in the left upper lobe. This is nonspecific, but can be seen with an infectious/inflammatory etiologies. Please note that all CT scans at this facility use dose modulation, iterative reconstruction, and/or weight-based dosing when appropriate to reduce radiation dose to as low as reasonably achievable. Dictated by Charlee Mathew MD @ Dec 28 2018 10:53AM Signed by Dr. Charlee Mathew @ Dec 28 2018 11:00AM
[2018-12-28] MEDS: Clindamycin Phosphate in D5W 300 MG in Premix Bag 1 BAG IV SCH ×4 (12:16→17:55)
[2018-12-28] MEDS: Piperacillin/Tazobactam 4.5 GM in Sodium Chloride 0.9% 100 ML IV SCH ×2 (12:56→18:43)
[2018-12-28] MEDS: Acetaminophen 325 MG Tab PO PRN (16:07)
[2018-12-28] MEDS: Gabapentin 300 MG Cap PO SCH (20:41)
[2018-12-28] MEDS: cloNIDine 0.1 MG Tab PO SCH (20:41)
[2018-12-29] MEDS: Clindamycin Phosphate in D5W 300 MG in Premix Bag 1 BAG IV SCH ×10 (00:28→23:37)
[2018-12-29] MEDS: oxyCODONE 5 MG Tab PO PRN ×3 (00:42→17:23)
[2018-12-29] MEDS: Piperacillin/Tazobactam 4.5 GM in Sodium Chloride 0.9% 100 ML IV SCH ×4 (01:14→18:56)
[2018-12-29] MEDS: Acetaminophen 325 MG Tab PO PRN ×4 (02:09→20:06)
[2018-12-29] MEDS: Omeprazole 20 MG Cap.CR PO SCH ×2 (06:25→06:32)
[2018-12-29 06:48] LABS: BLOOD UREA NITROGEN,BUN 9 mg/dL (7.0-18.0); CARBON DIOXIDE,CO2 24.6 mmol/L (21.0-32.0); CHLORIDE,CL 104 mmol/L (98-107); GLUCOSE RANDOM 98 mg/dL (74-106); POTASSIUM,K 3.6 mmol/L (3.5-5.1); SODIUM,NA 139 mmol/L (136-145)
--- NOTE | 2018-12-29 08:13 | CR ---
Indication : [id number]; followup. COMPARISON: CT angio chest with intravenous contrast December 28, 2018; chest radiograph December 28, 2018. TECHNIQUE: Portable AP chest. FINDINGS: Mild stable cardiomegaly. Pulmonary edema. No pneumothorax or pleural effusion . Impression : Pulmonary edema; no interval change when compared to December 28, 2018. Dictated by Chance Garay MD @ Dec 29 2018 8:09AM Signed by Dr. Chance Garay @ Dec 29 2018 8:12AM
--- NOTE | 2018-12-29 08:58 | PCM.PN ---
- General Info Date of Service: 12/29/18 Admission Dx/Problem (Free Text): Admission Diagnosis/Problem Admission Diagnosis/Problem Pneumonia Subjective Update: The patient is a 48-year-old lady who was admitted on December 28, 2018 secondary to fever, chills, shortness of breath and hypoxia. The patient was 3 days postop for rotator cuff repair of her left shoulder. She is not having any problems with her left shoulder. CT scan of her chest had excluded pulmonary emboli.The patient has had some physical improvement overnight. She has denied any pain. Her shortness of breath is better. The patient has not been using oxygen. She has been using her incentive spirometer and has been up to 750 mL. Functional Status: Reports: Pain Controlled - Review of Systems General: Reports: No Symptoms HEENT: Reports: No Symptoms Pulmonary: Reports: Shortness of Breath, Cough Cardiovascular: Reports: No Symptoms Gastrointestinal: Reports: No Symptoms Genitourinary: Reports: No Symptoms Musculoskeletal: Reports: Shoulder Pain (Postoperative day #4) Skin: Reports: No Symptoms Neurological: Reports: No Symptoms Psychiatric: Reports: No Symptoms - Patient Data Vitals - Most Recent: Last Vital Signs Temp 36.5 C 12/29/18 07:27 Pulse 78 12/29/18 07:27 Resp 18 12/29/18 07:27 BP 89/66 L 12/29/18 07:27 Pulse Ox 92 L 12/29/18 07:27 Weight - Most Recent: 82.372 kg I&O - Last 24 Hours: Intake & Output 12/28/18 12/29/18 12/29/18 22:59 06:59 14:59 Intake Total 1436 1290 Output Total 2800 2700 Balance -1364 -1410 Lab Results Last 24 Hours: Laboratory Results - last 24 hr 12/29/18 12/29/18 Range/Units 05:35 05:35 WBC 13.08 H (4.0-11.0) K/uL RBC 4.31 (4.30-5.90) M/uL Hgb 12.7 (12.0-16.0) g/dL Hct 39.1 (36.0-46.0) % MCV 90.7 (80.0-98.0) fL MCH 29.5 (27.0-32.0) pg MCHC 32.5 (31.0-37.0) g/dL RDW Std Deviation 44.0 (28.0-62.0) fl RDW Coeff of Adry 13 (11.0-15.0) % Plt Count 289 (150-400) K/uL MPV 10.10 (7.40-12.00) fL Neut % (Auto) 59.1 (48.0-80.0) % Lymph % (Auto) 25.3 (16.0-40.0) % [place] % (Auto) 10.6 (0.0-15.0) % Eos % (Auto) 4.7 (0.0-7.0) % Baso % (Auto) 0.3 (0.0-1.5) % Neut # (Auto) 7.7 H (1.4-5.7) K/uL Lymph # (Auto) 3.3 H (0.6-2.4) K/uL [place] # (Auto) 1.4 H (0.0-0.8) K/uL Eos # (Auto) 0.6 (0.0-0.7) K/uL Baso # (Auto) 0.0 (0.0-0.1) K/uL Nucleated RBC % 0.0 /100WBC Nucleated RBCs # 0 K/uL Sodium 139 (136-145) mmol/L Potassium 3.6 (3.5-5.1) mmol/L Chloride 104 (98-107) mmol/L Carbon Dioxide 24.6 (21.0-32.0) mmol/L BUN 9 (7.0-18.0) mg/dL Creatinine 0.8 (0.6-1.0) mg/dL Est Cr Clr Drug Dosing 62.44 mL/min Estimated GFR (MDRD) > 60.0 ml/min Glucose 98 (74-106) mg/dL Calcium 8.6 (8.5-10.1) mg/dL Total Bilirubin 1.2 H (0.2-1.0) mg/dL AST 33 (15-37) IU/L ALT 38 (14-63) IU/L Alkaline Phosphatase 100 (46-116) U/L Total Protein 6.7 (6.4-8.2) g/dL Albumin 2.9 L (3.4-5.0) g/dL Globulin 3.8 (2.6-4.0) g/dL Albumin/Globulin Ratio 0.8 L (0.9-1.6) Med Orders - Current: Current Medications Acetaminophen (Tylenol) 650 mg PO Q4H PRN PRN Reason: Pain Last Admin: 12/29/18 05:50 Dose: 650 mg Albuterol/Ipratropium (Duoneb 3.0-0.5 Mg/3 Ml) 3 ml NEB Q4HRRT PRN PRN Reason: Shortness Of Breath/wheezing Clonidine HCl (Catapres) 0.1 mg PO BEDTIME [facility] Last Admin: 12/28/18 20:41 Dose: 0.1 mg Docusate Sodium (Colace) 100 mg PO DAILY [facility] Last Admin: 12/28/18 09:59 Dose: 100 mg Enoxaparin Sodium (Lovenox) 40 mg SUBCUT Q24H [facility] Last Admin: 12/28/18 10:01 Dose: 40 mg Fluoxetine HCl (Prozac) 60 mg PO DAILY [facility] Last Admin: 12/28/18 09:59 Dose: 60 mg Gabapentin (Neurontin) 300 mg PO BEDTIME [facility] Last Admin: 12/28/18 20:41 Dose: 300 mg Vancomycin HCl 1.5 gm/ Premix 300 mls @ 199.188 mls/hr IV Q12H [facility] Last Admin: 12/28/18 22:17 Dose: 199.188 mls/hr Clindamycin Phosphate 300 mg/ (Premix) 50 mls @ 100 mls/hr IV Q6H [facility] Last Admin: 12/29/18 05:42 Dose: 100 mls/hr Piperacillin Sod/Tazobactam (Sod 4.5 gm/ Sodium Chloride) 100 mls @ 100 mls/hr IV Q6H [facility] Last Admin: 12/29/18 06:23 Dose: 100 mls/hr Nicotine (Habitrol) 14 mg TRDERM DAILY [facility] Last Admin: 12/28/18 10:32 Dose: 14 mg Omeprazole (Omeprazole) 20 mg PO ACBREAKFAST [facility] Last Admin: 12/29/18 06:32 Dose: 20 mg Ondansetron HCl (Zofran Odt) 4 mg PO Q6H PRN PRN Reason: nausea, able to take PO Oxycodone HCl (Oxycodone) 5 mg PO Q4H PRN PRN Reason: Pain Last Admin: 12/29/18 00:42 Dose: 5 mg Rosuvastatin Calcium (Crestor) 10 mg PO DAILY [facility] Last Admin: 12/28/18 09:59 Dose: 10 mg Sodium Chloride (Saline Flush) 10 ml FLUSH ASDIRECTED PRN PRN Reason: Keep Vein Open Sodium Chloride (Saline Flush) 2.5 ml FLUSH ASDIRECTED PRN PRN Reason: Keep Vein Open Discontinued Medications Hydromorphone HCl (Dilaudid) 1 mg IVPUSH ONETIME ONE Stop: 12/28/18 00:53 Last Admin: 12/28/18 01:02 Dose: 1 mg Sodium Chloride (Normal Saline) 1,000 mls @ 999 mls/hr IV STAT ONE Stop: 12/28/18 01:28 Last Admin: 12/28/18 00:49 Dose: 999 mls/hr Ceftriaxone Sodium/Dextrose 2 (gm/ Premix) 50 mls @ 100 mls/hr IV ONETIME ONE Stop: 12/28/18 02:48 Last Admin: 12/28/18 02:27 Dose: 100 mls/hr Sodium Chloride (Normal Saline) 1,000 mls @ 125 mls/hr IV ASDIRECTED [facility] Last Admin: 12/28/18 09:07 Dose: 125 mls/hr Sodium Chloride (Normal Saline) 1,000 mls @ 125 mls/hr IV ASDIRECTED [facility] Clindamycin Phosphate 300 mg/ (Premix) 50 mls @ 100 mls/hr IV Q6H [facility] Last Admin: 12/28/18 14:27 Dose: Not Given Piperacillin Sod/Tazobactam (Sod 4.5 gm/ Sodium Chloride) 100 mls @ 100 mls/hr IV Q6H [facility] Last Admin: 12/28/18 14:27 Dose: Not Given Piperacillin Sod/Tazobactam (Sod 4.5 gm/ Sodium Chloride) 100 mls @ 100 mls/hr IV Q6H [facility] Last Admin: 12/28/18 14:27 Dose: Not Given Iopamidol (Isovue Multipack-370 (76%)) 50 ml IVPUSH ONETIME STA Stop: 12/28/18 10:20 Last Admin: 12/28/18 10:20 Dose: 50 ml Ondansetron HCl (Zofran) 4 mg IVPUSH ONETIME ONE Stop: 12/28/18 01:07 Last Admin: 12/28/18 01:08 Dose: 4 mg Ondansetron HCl (Zofran) Confirm Administered Dose 4 mg .ROUTE .STK-MED ONE Stop: 12/28/18 01:07 Last Admin: 12/28/18 01:08 Dose: Not Given - Exam Quality Assessment: No: Supplemental Oxygen General: Alert, Oriented, Cooperative, No Acute Distress HEENT: Pupils Equal, Pupils Reactive, EOMI, Mucous Membr. Moist/[place] Neck: Supple, Trachea Midline Lungs: Decreased Breath Sounds, Rales Cardiovascular: Regular Rate, Regular Rhythm GI/Abdominal Exam: Normal Bowel Sounds, Soft, Non-Tender, No Distention Back Exam: Normal Inspection, Full Range of Motion Extremities: Normal Inspection, Normal Range of Motion, No Pedal Edema Skin: Warm, Dry, Intact Wound/Incisions: Healing Well Neurological: No New Focal Deficit Psy/Mental Status: Alert, Normal Affect, Normal Mood - Problem List & Annotations (1) Acute respiratory failure SNOMED Code(s): 82421421 Code(s): J96.00 - ACUTE RESPIRATORY FAILURE, UNSP W HYPOXIA OR HYPERCAPNIA Status: Resolved Priority: High Current Visit: Yes Qualifiers: Respiratory failure complication: hypoxia Qualified Code(s): J96.01 - Acute respiratory failure with hypoxia (2) Hypoxia SNOMED Code(s): 245425040 Code(s): R09.02 - HYPOXEMIA Status: Acute Current Visit: Yes (3) Pneumonia SNOMED Code(s): 840893263 Code(s): J18.9 - PNEUMONIA, UNSPECIFIED ORGANISM Status: Acute Priority: High Current Visit: Yes Qualifiers: Pneumonia type: due to unspecified organism Laterality: bilateral Lung location: upper lobe of lung Qualified Code(s): J18.1 - Lobar pneumonia, unspecified organism (4) Postoperative fever SNOMED Code(s): 813656743 Code(s): R50.82 - POSTPROCEDURAL FEVER Status: Acute Current Visit: Yes - Problem List Review Problem List Initiated/Reviewed/Updated: Yes - My Orders Last 24 Hours: My Active Orders 12/28/18 08:18 Oxygen Therapy [RC] PRN Up With Assistance [RC] ASDIRECTED VTE/DVT Education [RC] PER UNIT ROUTINE Vital Signs [RC] Q4H Albuterol/Ipratropium [DuoNeb 3.0-0.5 MG/3 ML] 3 ml NEB Q4HRRT PRN Ondansetron [Zofran ODT] 4 mg PO Q6H PRN Resuscitation Status Routine 12/28/18 08:20 RT Aerosol Therapy [RC] ASDIRECTED 12/28/18 09:00 Docusate Sodium [Colace] 100 mg PO DAILY Enoxaparin [Lovenox] 40 mg SUBCUT Q24H FLUoxetine [PROzac] 60 mg PO DAILY Omeprazole 20 mg PO ACBREAKFAST Rosuvastatin [Crestor] 10 mg PO DAILY 12/28/18 09:30 Vancomycin/Water For Inj (Peg) [Vancomycin 1.5 GM/300 ML Bag] 1.5 gm Premix Bag 1 bag IV Q12H 12/28/18 09:45 Nicotine [Habitrol] 14 mg TRDERM DAILY 12/28/18 12:30 Clindamycin Phosphate in D5W [Cleocin in D5W] 300 mg Premix Bag 1 bag IV Q6H 12/28/18 13:00 Piperacillin/Tazobactam [Piperacil-Tazobact] 4.5 gm Sodium Chloride 0.9% [ Normal Saline] 100 ml IV Q6H 12/28/18 15:54 Acetaminophen [Tylenol] 650 mg PO Q4H PRN 12/28/18 17:24 Amylase/Protease/Papain/Papaya [Papaya Enzyme Chewable Tablet] DOSE UNIT RTE FREQ PRN 12/28/18 21:00 Gabapentin [Neurontin] 300 mg PO BEDTIME cloNIDine [Catapres] 0.1 mg PO BEDTIME 12/30/18 09:00 VANCOMYCIN TROUGH [CHEM] Timed - Plan Plan:: The patient is improved. She will be maintained on her current antibiotics for treatment of hospital-acquired pneumonia. Repeat chest x-ray completed this morning shows somewhat improvement over her admission chest x-ray. The patient' s CT obtained late yesterday afternoon does not show any evidence of pulmonary emboli however she does have ground glass opacities that are consistent with infiltrates. The patient will be kept on her regular diet as tolerated. She is also to have PT OT. The patient will have oxygen as necessary to keep her saturations above 92% area the patient should be appropriate for discharge home once her oxygen demands have normalized and she is able to breathe deeply. The patient has been encouraged to ambulate.
[2018-12-29] MEDS: Docusate Sodium 100 MG Cap PO SCH (09:24)
[2018-12-29] MEDS: Rosuvastatin 10 MG Tab PO SCH (09:24)
[2018-12-29] MEDS: Enoxaparin 40 MG/0.4 ML Syringe SUBCUT SCH (09:27)
[2018-12-29] MEDS: FLUoxetine 20 MG Cap PO SCH (09:27)
[2018-12-29] MEDS: Nicotine 14 MG/24 Hr Patch TRDERM SCH (09:28)
[2018-12-29] MEDS: VANCOMYCIN/WATER FOR INJ (PEG) 1.5 GM in Premix Bag 1 BAG IV SCH ×2 (09:34→21:31)
[2018-12-29] MEDS: cloNIDine 0.1 MG Tab PO SCH (21:26)
[2018-12-29] MEDS: Gabapentin 300 MG Cap PO SCH (21:26)
[2018-12-30] MEDS: Piperacillin/Tazobactam 4.5 GM in Sodium Chloride 0.9% 100 ML IV SCH ×2 (00:14→06:53)
[2018-12-30] MEDS: oxyCODONE 5 MG Tab PO PRN ×2 (02:46→09:46)
[2018-12-30] MEDS: Clindamycin Phosphate in D5W 300 MG in Premix Bag 1 BAG IV SCH ×2 (06:14)
[2018-12-30] MEDS: Acetaminophen 325 MG Tab PO PRN (06:25)
[2018-12-30] MEDS: Omeprazole 20 MG Cap.CR PO SCH (06:53)
[2018-12-30 08:32] LABS: BLOOD UREA NITROGEN,BUN 9 mg/dL (7.0-18.0); CARBON DIOXIDE,CO2 22.4 mmol/L (21.0-32.0); CHLORIDE,CL 103 mmol/L (98-107); GLUCOSE RANDOM 149 mg/dL (74-106); POTASSIUM,K 3.1 mmol/L (3.5-5.1); SODIUM,NA 137 mmol/L (136-145)
[2018-12-30] MEDS: Rosuvastatin 10 MG Tab PO SCH (09:09)
[2018-12-30] MEDS: Docusate Sodium 100 MG Cap PO SCH (09:09)
[2018-12-30] MEDS: Nicotine 14 MG/24 Hr Patch TRDERM SCH (09:09)
[2018-12-30] MEDS: FLUoxetine 20 MG Cap PO SCH (09:09)
[2018-12-30] MEDS: Enoxaparin 40 MG/0.4 ML Syringe SUBCUT SCH (09:10)
[2018-12-30] MEDS: VANCOMYCIN/WATER FOR INJ (PEG) 1.5 GM in Premix Bag 1 BAG IV SCH (09:49)
--- NOTE | 2018-12-30 09:58 | PCM.DCSUM1 ---
Discharge Summary - Hospital Course HPI Initial Comments: The patient was admitted secondary to shortness of breath and hypoxia. Diagnosis: Stroke: No - Discharge Data Discharge Date: 12/30/18 Discharge Disposition: Home, Self-Care 01 Condition: Fair - Referral to Home Health Primary Care Physician: PCP None - Discharge Diagnosis/Problem(s) (1) Acute respiratory failure SNOMED Code(s): 25854806 ICD Code: J96.00 - ACUTE RESPIRATORY FAILURE, UNSP W HYPOXIA OR HYPERCAPNIA Status: Resolved Priority: High Current Visit: Yes Qualifiers: Respiratory failure complication: hypoxia Qualified Code(s): J96.01 - Acute respiratory failure with hypoxia (2) Hypoxia SNOMED Code(s): 361757742 ICD Code: R09.02 - HYPOXEMIA Status: Resolved Current Visit: Yes (3) Pneumonia SNOMED Code(s): 788648043 ICD Code: J18.9 - PNEUMONIA, UNSPECIFIED ORGANISM Status: Acute Priority : High Current Visit: Yes Qualifiers: Pneumonia type: due to unspecified organism Laterality: bilateral Lung location: upper lobe of lung Qualified Code(s): J18.1 - Lobar pneumonia, unspecified organism (4) Postoperative fever SNOMED Code(s): 115067097 ICD Code: R50.82 - POSTPROCEDURAL FEVER Status: Acute Current Visit: Yes - Patient Summary/Data Hospital Course: The patient is a 48-year-old lady who was admitted to acute hospitalization on December 28, 2018 secondary to pneumonia. The patient had surgery for rotator cuff repair on her left shoulder 3 days prior to admission. The patient had shortness of breath. She also had low-grade fever of 100.5F. And the patient was told to go to the emergency room if she started to develop any fever or chills. The patient also had been noted to have productive of pinkish sputum along with shortness of breath and not able to take a deep breath. The patient was noted to be hypoxic at 90% while on room air initially. The patient had a chest x-ray obtained on December 29, 2018 which showed mild stable cardiomegaly with pulmonary edema. The patient also had a CT scan obtained on December 28, 2018 out of concern for for possible pulmonary emboli. CT scan did not show evidence of pulmonary emboli. The patient was continued on antibiotics and she was treated specifically for hospital-acquired pneumonia due to her recent surgery. The patient was treated with Zosyn, vancomycin and clindamycin which pharmacy was dosing. The patient had continued to recover to her short course of hospitalization and she had been instructed on the appropriate use of incentive spirometer. The patient has been recommended to continue with the incentive spirometer while at home and that this should help to improve her depth of respiration. The patient has been recommended to continue follow-up with her orthopedic surgeon. The patient had been discharged with continued treatment for her likely hospital-acquired pneumonia with Levaquin 500 mg by mouth daily. Also for the patient's smoking she has been strongly counseled with regards to smoking cessation and she has been prescribed nicotine patches 21 mg transdermal daily. The patient has been recommended continue with her diet as tolerated. She is also to have activity as tolerated. The patient is currently hemodynamically stable and is discharged from acute hospitalization. - Patient Instructions Diet: Heart Healthy Diet Activity: As Tolerated Notify Provider of: Fever, Increased Pain, Swelling and Redness - Discharge Plan *PRESCRIPTION DRUG MONITORING PROGRAM REVIEWED*: No *COPY OF PRESCRIPTION DRUG MONITORING REPORT IN PATIENT JEREMY: No Prescriptions/Med Rec: Levofloxacin [Levaquin] 500 mg PO DAILY #7 tablet Nicotine [Nicotine Patch] 21 mg TD DAILY #15 patch Home Medications: Home Meds FLUoxetine HCl [Prozac] 60 mg PO DAILY 05/02/18 [History] Omeprazole 20 mg PO DAILY 05/02/18 [History] Rosuvastatin [Crestor] 10 mg PO DAILY 05/02/18 [History] Albuterol Sulfate [Proventil Hfa] 6.7 gm IH Q4HR PRN 12/28/18 [History] Amylase/Protease/Papain/Papaya [Papaya Enzyme Chewable Tablet] 1 each PO PRN 09/10 [History] Docusate Sodium [Stool Softener] 100 mg PO DAILY 12/28/18 [History] Gabapentin [Neurontin] 300 mg PO BEDTIME 12/28/18 [History] Jasmin Root [Jasmin] 250 mg PO DAILY 12/28/18 [History] Hydrocodone/Acetaminophen [Dingle 10-325 Tablet] 0 mg PO ASDIRECTED PRN 12/28/18 [History] Niacin 100 mg PO DAILY 12/28/18 [History] Vitamin B Complex 1 each PO DAILY 12/28/18 [History] cloNIDine [Catapres] 0.1 mg PO BEDTIME 12/28/18 [History] oxyCODONE 0 mg PO ASDIRECTED PRN 12/28/18 [History] Levofloxacin [Levaquin] 500 mg PO DAILY #7 tablet 12/30/18 [Rx] Nicotine [Nicotine Patch] 21 mg TD DAILY #15 patch 12/30/18 [Rx] Patient Handouts: Levofloxacin tablets, [facility] Pneumonia Referrals: PCP,None [Primary Care Provider] - Dl You MD [Ordering Only Provider] - 01/09/19 1:00 pm - Discharge Summary/Plan Comment DC Time >30 min.: Yes - General Info Date of Service: 12/30/18 Admission Dx/Problem (Free Text: Admission Diagnosis/Problem Admission Diagnosis/Problem Pneumonia, hospital-acquired, postop left rotator cuff repair Subjective Update: The patient is doing much better today. She has been breathing better. She is off oxygen. Functional Status: Reports: Pain Controlled - Review of Systems General: Reports: No Symptoms HEENT: Reports: No Symptoms Pulmonary: Reports: No Symptoms Cardiovascular: Reports: No Symptoms Gastrointestinal: Reports: No Symptoms Genitourinary: Reports: No Symptoms Musculoskeletal: Reports: No Symptoms Skin: Reports: No Symptoms Neurological: Reports: No Symptoms Psychiatric: Reports: No Symptoms - Patient Data Vitals - Most Recent: Last Vital Signs Temp 36.5 C 12/30/18 07:41 Pulse 83 12/30/18 07:41 Resp 16 12/30/18 07:41 BP 110/65 12/30/18 07:41 Pulse Ox 92 L 12/30/18 07:41 Weight - Most Recent: 82.372 kg I&O - Last 24 hours: Intake & Output 12/29/18 12/30/18 12/30/18 22:59 06:59 14:59 Intake Total 1750 2100 Output Total 2450 2050 Balance -700 50 Lab Results - Last 24 hrs: Laboratory Results - last 24 hr 12/30/18 12/30/18 12/30/18 Range/Units 07:45 07:46 07:46 WBC 10.92 (4.0-11.0) K/uL RBC 4.26 L (4.30-5.90) M/uL Hgb 12.5 (12.0-16.0) g/dL Hct 37.8 (36.0-46.0) % MCV 88.7 (80.0-98.0) fL MCH 29.3 (27.0-32.0) pg MCHC 33.1 (31.0-37.0) g/dL RDW Std Deviation 42.2 (28.0-62.0) fl RDW Coeff of Adry 13 (11.0-15.0) % Plt Count 282 (150-400) K/uL MPV 9.60 (7.40-12.00) fL Neut % (Auto) 66.3 (48.0-80.0) % Lymph % (Auto) 19.3 (16.0-40.0) % [place] % (Auto) 9.0 (0.0-15.0) % Eos % (Auto) 5.2 (0.0-7.0) % Baso % (Auto) 0.2 (0.0-1.5) % Neut # (Auto) 7.2 H (1.4-5.7) K/uL Lymph # (Auto) 2.1 (0.6-2.4) K/uL [place] # (Auto) 1.0 H (0.0-0.8) K/uL Eos # (Auto) 0.6 (0.0-0.7) K/uL Baso # (Auto) 0.0 (0.0-0.1) K/uL Nucleated RBC % 0.0 /100WBC Nucleated RBCs # 0 K/uL Sodium 137 (136-145) mmol/L Potassium 3.1 L (3.5-5.1) mmol/L Chloride 103 (98-107) mmol/L Carbon Dioxide 22.4 (21.0-32.0) mmol/L BUN 9 (7.0-18.0) mg/dL Creatinine 0.8 (0.6-1.0) mg/dL Est Cr Clr Drug Dosing 62.44 mL/min Estimated GFR (MDRD) > 60.0 ml/min Glucose 149 H (74-106) mg/dL Calcium 8.2 L (8.5-10.1) mg/dL Vancomycin Trough 12.5 H (5.0-10.0) ug/mL PEPITO Results - Last 24 hrs: Microbiology 12/28/18 01:30 Aerobic Blood Culture - Preliminary Blood - Venous - Lab Draw NO GROWTH AFTER 2 DAYS Anaerobic Blood Culture - Preliminary NO GROWTH AFTER 2 DAYS 12/28/18 00:39 Aerobic Blood Culture - Preliminary Blood - Venous NO GROWTH AFTER 2 DAYS Anaerobic Blood Culture - Preliminary NO GROWTH AFTER 2 DAYS Med Orders - Current: Current Medications Acetaminophen (Tylenol) 650 mg PO Q4H PRN PRN Reason: Pain Last Admin: 12/30/18 06:25 Dose: 650 mg Albuterol/Ipratropium (Duoneb 3.0-0.5 Mg/3 Ml) 3 ml NEB Q4HRRT PRN PRN Reason: Shortness Of Breath/wheezing Clonidine HCl (Catapres) 0.1 mg PO BEDTIME [facility] Last Admin: 12/29/18 21:26 Dose: 0.1 mg Docusate Sodium (Colace) 100 mg PO DAILY [facility] Last Admin: 12/30/18 09:09 Dose: 100 mg Enoxaparin Sodium (Lovenox) 40 mg SUBCUT Q24H [facility] Last Admin: 12/30/18 09:10 Dose: 40 mg Fluoxetine HCl (Prozac) 60 mg PO DAILY [facility] Last Admin: 12/30/18 09:09 Dose: 60 mg Gabapentin (Neurontin) 300 mg PO BEDTIME [facility] Last Admin: 12/29/18 21:26 Dose: 300 mg Vancomycin HCl 1.5 gm/ Premix 300 mls @ 199.188 mls/hr IV Q12H [facility] Last Admin: 12/29/18 21:31 Dose: 199.188 mls/hr Clindamycin Phosphate 300 mg/ (Premix) 50 mls @ 100 mls/hr IV Q6H [facility] Last Admin: 12/30/18 06:14 Dose: 100 mls/hr Piperacillin Sod/Tazobactam (Sod 4.5 gm/ Sodium Chloride) 100 mls @ 100 mls/hr IV Q6H [facility] Last Admin: 12/30/18 06:53 Dose: 100 mls/hr Nicotine (Habitrol) 14 mg TRDERM DAILY [facility] Last Admin: 12/30/18 09:09 Dose: 14 mg Omeprazole (Omeprazole) 20 mg PO ACBREAKFAST [facility] Last Admin: 12/30/18 06:53 Dose: 20 mg Ondansetron HCl (Zofran Odt) 4 mg PO Q6H PRN PRN Reason: nausea, able to take PO Last Admin: 12/30/18 06:38 Dose: 4 mg Oxycodone HCl (Oxycodone) 5 mg PO Q4H PRN PRN Reason: Pain Last Admin: 12/30/18 02:46 Dose: 5 mg Rosuvastatin Calcium (Crestor) 10 mg PO DAILY [facility] Last Admin: 12/30/18 09:09 Dose: 10 mg Sodium Chloride (Saline Flush) 10 ml FLUSH ASDIRECTED PRN PRN Reason: Keep Vein Open Sodium Chloride (Saline Flush) 2.5 ml FLUSH ASDIRECTED PRN PRN Reason: Keep Vein Open Discontinued Medications Hydromorphone HCl (Dilaudid) 1 mg IVPUSH ONETIME ONE Stop: 12/28/18 00:53 Last Admin: 12/28/18 01:02 Dose: 1 mg Sodium Chloride (Normal Saline) 1,000 mls @ 999 mls/hr IV STAT ONE Stop: 12/28/18 01:28 Last Admin: 12/28/18 00:49 Dose: 999 mls/hr Ceftriaxone Sodium/Dextrose 2 (gm/ Premix) 50 mls @ 100 mls/hr IV ONETIME ONE Stop: 12/28/18 02:48 Last Admin: 12/28/18 02:27 Dose: 100 mls/hr Sodium Chloride (Normal Saline) 1,000 mls @ 125 mls/hr IV ASDIRECTED [facility] Last Admin: 12/28/18 09:07 Dose: 125 mls/hr Sodium Chloride (Normal Saline) 1,000 mls @ 125 mls/hr IV ASDIRECTED [facility] Clindamycin Phosphate 300 mg/ (Premix) 50 mls @ 100 mls/hr IV Q6H [facility] Last Admin: 12/28/18 14:27 Dose: Not Given Piperacillin Sod/Tazobactam (Sod 4.5 gm/ Sodium Chloride) 100 mls @ 100 mls/hr IV Q6H [facility] Last Admin: 12/28/18 14:27 Dose: Not Given Piperacillin Sod/Tazobactam (Sod 4.5 gm/ Sodium Chloride) 100 mls @ 100 mls/hr IV Q6H [facility] Last Admin: 12/28/18 14:27 Dose: Not Given Iopamidol (Isovue Multipack-370 (76%)) 50 ml IVPUSH ONETIME STA Stop: 12/28/18 10:20 Last Admin: 12/28/18 10:20 Dose: 50 ml Ondansetron HCl (Zofran) 4 mg IVPUSH ONETIME ONE Stop: 12/28/18 01:07 Last Admin: 12/28/18 01:08 Dose: 4 mg Ondansetron HCl (Zofran) Confirm Administered Dose 4 mg .ROUTE .STK-MED ONE Stop: 12/28/18 01:07 Last Admin: 12/28/18 01:08 Dose: Not Given - Exam Quality Assessment: Denies: Supplemental Oxygen General: Reports: Alert, Oriented, Cooperative, No Acute Distress HEENT: Reports: Pupils Equal, Pupils Reactive, EOMI, Mucous Membr. Moist/[place] Neck: Reports: Supple, Trachea Midline Lungs: Reports: Clear to Auscultation, Normal Respiratory Effort Cardiovascular: Reports: Regular Rate, Regular Rhythm GI/Abdominal Exam: Normal Bowel Sounds, Soft, No Distention Back Exam: Reports: Normal Inspection, Full Range of Motion Extremities: No: Normal Inspection (Left shoulder in sling and swath) Skin: Reports: Warm, Dry, Intact Wound/Incisions: Reports: Healing Well Neurological: Reports: No New Focal Deficit Psy/Mental Status: Reports: Alert, Normal Affect, Normal Mood
[2018-12-30 12:46] VITALS: BP 111/72; PULSE 85
== END 2018-12-30 12:15 | disposition home or self-care (01) ==
LOC: MW.ED 23:53 → MW.MS 12-28 02:40
PROVIDERS: ADMIT Internal Medicine; ATTEND Internal Medicine
DX: J18.1 Lobar pneumonia, unspecified organism (principal); J96.01 Acute respiratory failure with hypoxia; R50.82 Postprocedural fever; I10 Essential (primary) hypertension; E78.00 Pure hypercholesterolemia, unspecified; F32.9 Major depressive disorder, single episode, unspecified; F41.9 Anxiety disorder, unspecified; F17.210 Nicotine dependence, cigarettes, uncomplicated; E66.9 Obesity, unspecified; Z79.899 Other long term (current) drug therapy
CPT/HCPCS: 36415; 71045; 71275; 80048; 80053; 80202; 81001; 83605; 83880; 85025; 87040; 93005; 96361; 96365; 96366; 96367; 96372; 96375; 96376; 99284; A9270; G0378; J0696; J1170; J1650; J2405; J2543; J3370; J3490; J7030; J7040; Q9967

== ENCOUNTER 2021-10-09 13:32 | Emergency (ER) | payer BC ==
[2021-10-09] MEDS ORDERED: Sodium Chloride 0.9% 1,000 ML IV ONE (14:11)
[2021-10-09] MEDS ORDERED: Morphine 4 MG/ML VIAL IVPUSH ONE ×2 (14:11→16:57)
[2021-10-09] MEDS ORDERED: Ondansetron 4 MG/2 ML SDV IVPUSH ONE (14:11)
[2021-10-09 14:55] LABS: CARBON DIOXIDE,CO2 25.3 mmol/L (21.0-32.0); POTASSIUM,K 3.9 mmol/L (3.5-5.1)
[2021-10-09] MEDS ORDERED: Iopamidol 755 MG/ML 500 ML Multipack Bottle IVPUSH STA (16:03)
[2021-10-09] MEDS ORDERED: Morphine 4 MG/ML VIAL IM ONE (16:54)
[2021-10-09 18:07] VITALS: BP 134/78; PULSE 71
== END 2021-10-09 18:07 | disposition home or self-care (01) ==
LOC: MW.ED 13:32
DX: K92.2 Gastrointestinal hemorrhage, unspecified (principal); I10 Essential (primary) hypertension; E66.9 Obesity, unspecified; Z68.34 Body mass index [BMI] 34.0-34.9, adult; Z20.822 Contact with and (suspected) exposure to COVID-19; Z79.899 Other long term (current) drug therapy; Z90.710 Acquired absence of both cervix and uterus
CPT/HCPCS: 36415; 74177; 80053; 81003; 85025; 87635; 96361; 96374; 96375; 96376; 99284; J2270; J2405; J7030; Q9967; U0002

== ENCOUNTER 2024-12-04 07:17 | Day surgery (SDC) | payer BC ==
[2024-12-04] MEDS ORDERED: propofoL 500 MG/50 ML 50 ML ONE (07:27)
[2024-12-04] MEDS: Lactated Ringers 1,000 ML IV SCH (07:47)
[2024-12-04] MEDS ORDERED: Ketamine HCL/NACL, ISO-OSM 50 MG/5 ML Syringe ONE (07:58)
[2024-12-04] MEDS ORDERED: Ketamine 500 mg/10 ML MDV ONE (07:58)
[2024-12-04] MEDS ORDERED: Ondansetron 4 MG/2 ML SDV ONE (08:20)
[2024-12-04] MEDS ORDERED: Lactated Ringers 1,000 ML IV SCH (09:00)
[2024-12-04 11:31] VITALS: BP 99/58; PULSE 74
== END 2024-12-04 09:50 | disposition home or self-care (01) ==
LOC: MW.SDS 07:17 → EEVIPCON 08:00 → MW.SDS 09:50
PROVIDERS: ATTEND Surgery
DX: Z12.11 Encounter for screening for malignant neoplasm of colon (principal); K29.50 Unspecified chronic gastritis without bleeding; K20.0 Eosinophilic esophagitis; I10 Essential (primary) hypertension; I25.10 Atherosclerotic heart disease of native coronary artery without angina pectoris; E78.00 Pure hypercholesterolemia, unspecified; F17.200 Nicotine dependence, unspecified, uncomplicated; E66.9 Obesity, unspecified; Z68.33 Body mass index [BMI] 33.0-33.9, adult; Z80.0 Family history of malignant neoplasm of digestive organs; Z79.899 Other long term (current) drug therapy
CPT/HCPCS: 43239; 45378; J1596; J2405; J2704; J7120; 00813; J3490